=== PATIENT | male | born 1965 | race Caucasian/White ===

== ENCOUNTER 2025-07-14 18:26 | Emergency (ER) | payer MEDICARE, MEDICAID | END 2025-07-14 18:56 | disposition home or self-care (01) | LOC: FB.ED 18:26 | DX: S61.216A Laceration without foreign body of right little finger without damage to nail, initial encounter (principal); W23.0XXA Caught, crushed, jammed, or pinched between moving objects, initial encounter | CPT/HCPCS: 12001; 99282 ==